=== PATIENT | male | born 1940 | race Caucasian/White ===

== ENCOUNTER 2017-06-02 18:35 | Inpatient (IN) | payer MEDICARE, BC ==
[~2017-06-02] VITALS: Ht 165.1 cm; Wt 74.8 kg
[~2017-06-02 18:35] MED LIST: ACET200V4 HHN; ASPI81TA31 PO; ATOR10TA PO; DILT90TA10 PO; EPOE200012 SQ; FAMO-132 PO; HYDR-4076 PO; HYDR-552 PO; IPRA0.2S6 HHN; LEVO50TA8 PO; MULT-1168 PO; PYRI60TA2 PO; ROSU5TAB PO; UBID1CAP54 PO
[2017-06-02] MEDS ORDERED: BISA10SU12 RC (18:57)
[2017-06-02] MEDS ORDERED: DONE5TAB34 PO (18:57)
[2017-06-02] MEDS ORDERED: MEMA5TAB PO (18:57)
[2017-06-02] MEDS ORDERED: FURO40TA5 PO (18:57)
[2017-06-02] MEDS ORDERED: CHOL200026 PO (18:57)
[2017-06-02] MEDS ORDERED: LACT-214 PO (18:57)
[2017-06-02] MEDS ORDERED: ACET-73 PO (18:57)
[2017-06-02] MEDS ORDERED: ASCO500T9 PO (18:57)
[2017-06-02] MEDS ORDERED: MENT71OI TP (18:57)
[2017-06-02] MEDS ORDERED: HEPA500034 IJ (18:57)
[2017-06-02] MEDS ORDERED: DILT120T2 PO (18:57)
[2017-06-02] MEDS ORDERED: MIRT15TA PO (18:57)
[2017-06-02] MEDS ORDERED: AMIN30LI2 PO (18:57)
[2017-06-02 19:11] LABS: CARBON DIOXIDE 21 mmol/L (21-32); CHLORIDE 106 mmol/L (98-107); CREATININE 2.3 mg/dL (0.6-1.3); GLUCOSE 98 mg/dL (74-106); POTASSIUM 4.3 mmol/L (3.5-5.1); UREA NITROGEN, BLOOD 67 mg/dL (7-18)
[2017-06-02 19:12] LABS: BASOPHILS # (AUTO) 0.1 K/uL (0.0-8.0); BASOPHILS % (AUTO) 0.5 % (0.0-2.0); EOSINOPHILS # (AUTO) 0.7 K/uL (0.0-0.7); EOSINOPHILS % (AUTO) 5.3 % (0.0-7.0); HEMATOCRIT 42.2 % (40-50); HEMOGLOBIN 13.6 G/DL (14.0-18.0); LYMPHOCYTES # (AUTO) 1.5 K/UL (0.8-4.8); LYMPHOCYTES % (AUTO) 11.5 % (20.5-51.5); MEAN CORPUSCULAR HGB CONC 32 g/dL (32.0-37.0); MEAN CORPUSCULAR VOLUME 90.3 FL (82.0-92.0); MONOCYTES # (AUTO) 1.3 K/UL (0.1-1.30); MONOCYTES % (AUTO) 10.1 % (0.0-11.0); NEUTROPHILS # (AUTO) 9.3 K/UL (1.8-8.9); NEUTROPHILS % (AUTO) 72.6 % (38.5-71.5); PLATELET COUNT (AUTO) 196 K/UL (150-450); RED BLOOD CELL COUNT(AUTO) 4.67 MIL/UL (4.7-6.1); WHITE BLOOD COUNT (AUTO) 12.9 K/UL (4.0-11.2)
[2017-06-02 19:18] LABS: ETHANOL < 3 MG/DL (0-0)
--- NOTE | 2017-06-02 19:19 | NUR ---
Call placed to [facility] for PET evaluation, ETA 90 min.
[2017-06-02 19:25] LABS: ALANINE AMINOTRANSFERASE 26 U/L (16-63); ALKALINE PHOSPHATASE 54 U/L (50-136); ASPARTATE AMINOTRANSFERASE 17 U/L (15-37); BILIRUBIN,DIRECT 0.2 mg/dL (0.0-0.2); BILIRUBIN,TOTAL 0.4 mg/dL (0.2-1.0); TOTAL PROTEIN, SERUM 6.6 g/dL (6.4-8.2)
[2017-06-02 19:28] LABS: ACETAMINOPHEN < 2.0 ug/mL (10-30)
[2017-06-02 19:45] LABS: THYROID STIMULATING HORMONE 2.637 mIU/mL (0.358-3.740)
--- NOTE | 2017-06-02 19:52 | NUR ---
Daughter, Cheli, called to provide contact information. She states she will visit the patient tomorrow morning. Cheli, daughter, . Angela, who has a hip fracture and cannot visit, .
--- NOTE | 2017-06-02 22:18 | NUR ---
Pt. admitted to GPS, under care of Dr. Elise Belongs List completed
[2017-06-02] MEDS ORDERED: ACETAMINOPHEN ES 500 MG TABLET PO PRN (23:15)
[2017-06-02] MEDS ORDERED: BISACODYL 10 MG SUPP.RECT RC PRN (23:15)
[2017-06-02] MEDS ORDERED: HYDROCODONE/APAP 5-325MG TABLET PO PRN (23:15)
[2017-06-02] MEDS ORDERED: LORAZEPAM 1 MG TABLET PO PRN (23:45)
[2017-06-02] MEDS ORDERED: MAG HYDROX/AL HYDROX/SIMETH 30 ML LIQUID UDC PO PRN (23:45)
[2017-06-02] MEDS ORDERED: ACETAMINOPHEN 325 MG TABLET PO PRN (23:45)
[2017-06-02] MEDS ORDERED: TEMAZEPAM 7.5 MG CAPSULE PO PRN (23:45)
[2017-06-02 23:51] VITALS: BP 120/86
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
[2017-06-03] MEDS: LEVOTHYROXINE SODIUM 50 MCG TABLET PO SCH ×2 (07:00→07:31)
--- NOTE | 2017-06-03 07:00 | NUR ---
RECEIVED REPORT FROM AIR SUPPORT OPERATIONS OPERATOR NURSE, PT ASLEEP RESP EVEN/UNLABORED NO DISTRESS NOTED, WILL CONTINUE TO MONITOR.
[2017-06-03 07:30] VITALS: BP 142/97
[2017-06-03] MEDS: PROTEIN SUPPLEMENT (PROSTAT) 30 ML LIQUID PO SCH (08:00)
[2017-06-03] MEDS ORDERED: DONEPEZIL 5 MG TABLET PO SCH (09:00)
[2017-06-03] MEDS ORDERED: Medication Not On Formulary EA (Amino Acids/Protein Hydrolys (Pro-Stat Liquid) 30 ML) PO SCH (09:00)
[2017-06-03] MEDS: MULTIVIT, IRON, MIN NO. 8, FA TABLET PO SCH (09:00)
[2017-06-03] MEDS: HEPARIN SODIUM,PORCINE 5,000 UNITS/ML VIAL SQ SCH ×2 (09:00→21:00)
[2017-06-03] MEDS ORDERED: MEMANTINE HCL 5 MG TABLET PO SCH (09:00)
[2017-06-03] MEDS: FAMOTIDINE 20 MG TABLET PO SCH (09:00)
[2017-06-03] MEDS: ASCORBIC ACID 500 MG TABLET PO SCH (09:00)
[2017-06-03] MEDS ORDERED: HEPARIN SODIUM,PORCINE 10,000 UNITS/10 ML VIAL INJ SCH (09:00)
[2017-06-03] MEDS ORDERED: DILTIAZEM HCL 120 MG PO SCH (09:00)
[2017-06-03] MEDS: FUROSEMIDE 40 MG TABLET PO SCH (09:00)
[2017-06-03] MEDS ORDERED: LACTOSE FREE FOOD PO SCH (09:00)
[2017-06-03] MEDS ORDERED: Medication Not On Formulary EA (Cholecalciferol (Vitamin D3) (Vitamin D3 TAB) 2,000 UNIT PO SCH (09:00)
[2017-06-03] MEDS: CHOLECALCIFEROL 1,000 UNIT TABLET PO SCH ×2 (09:00→17:47)
[2017-06-03] MEDS ORDERED: Medication Not On Formulary EA (Mu-Vits-Min Th/Lycopene/Lutein (Centrum Silver Tablet) 1 PO SCH (09:00)
[2017-06-03] MEDS: ASPIRIN 81 MG TAB.CHEW PO SCH (09:00)
[2017-06-03] MEDS: DILTIAZEM HCL CD 120 MG CAP.SR.24H PO SCH (09:00)
[2017-06-03] MEDS ORDERED: Z GUARD REMEDY PASTE 57 GM TUBE TP SCH (09:00)
--- NOTE | 2017-06-03 09:51 | NUR ---
PT REFUSED ALL AM MEDS, SAID 'NO THANK YOU', ENC PT TO TAKE MEDS BUT PT STILL REFUSED.
[2017-06-03] MEDS: BOOST PLUS 237 ML LIQUID (VERY VANILLA) PO SCH ×2 (12:00→17:50)
[2017-06-03 15:29] VITALS: BP 131/80
--- NOTE | 2017-06-03 17:58 | NUR ---
PT TOOK PM MEDS, EATING DINNER DAUGHTER AT BEDSIDE, PT IS CALM AND QUIET, WILL GIVE REPORT TO TRAINING PROGRAM ASSISTANT NURSE.
[2017-06-03 20:07] VITALS: BP 121/83
[2017-06-03] MEDS: MIRTAZAPINE 15 MG TABLET PO SCH (21:21)
[2017-06-04] MEDS: LEVOTHYROXINE SODIUM 50 MCG TABLET PO SCH (06:52)
[2017-06-04 07:30] VITALS: BP 128/85
[2017-06-04] MEDS: PROTEIN SUPPLEMENT (PROSTAT) 30 ML LIQUID PO SCH (08:00)
[2017-06-04] MEDS: BOOST PLUS 237 ML LIQUID (VERY VANILLA) PO SCH ×3 (08:00→16:51)
[2017-06-04] MEDS: ASPIRIN 81 MG TAB.CHEW PO SCH (08:45)
[2017-06-04] MEDS: MULTIVIT, IRON, MIN NO. 8, FA TABLET PO SCH (08:45)
[2017-06-04] MEDS: ASCORBIC ACID 500 MG TABLET PO SCH (08:45)
[2017-06-04] MEDS: FUROSEMIDE 40 MG TABLET PO SCH (08:45)
[2017-06-04] MEDS: FAMOTIDINE 20 MG TABLET PO SCH (08:45)
[2017-06-04] MEDS: CHOLECALCIFEROL 1,000 UNIT TABLET PO SCH ×2 (08:45→16:50)
[2017-06-04] MEDS: DILTIAZEM HCL CD 120 MG CAP.SR.24H PO SCH (08:46)
[2017-06-04] MEDS: HEPARIN SODIUM,PORCINE 5,000 UNITS/ML VIAL SQ SCH ×2 (08:48→20:04)
[2017-06-04] MEDS: Z GUARD REMEDY PASTE 57 GM TUBE TP SCH (09:27)
--- NOTE | 2017-06-04 15:00 | NUR ---
family at bedside, supportive of patient care. patient glad of visit.
[2017-06-04 15:22] VITALS: BP 118/79
[2017-06-04 17:02] LABS: BASOPHILS # (AUTO) 0.1 K/uL (0.0-8.0); BASOPHILS % (AUTO) 0.5 % (0.0-2.0); EOSINOPHILS # (AUTO) 0.6 K/uL (0.0-0.7); EOSINOPHILS % (AUTO) 5.6 % (0.0-7.0); HEMATOCRIT 39.2 % (40-50); HEMOGLOBIN 12.9 G/DL (14.0-18.0); LYMPHOCYTES % (AUTO) 10.3 % (20.5-51.5); MEAN CORPUSCULAR HEMOGLOBIN 29.6 UUG (27.0-31.0); MEAN CORPUSCULAR HGB CONC 33 g/dL (32.0-37.0); MEAN CORPUSCULAR VOLUME 90.2 FL (82.0-92.0); MONOCYTES # (AUTO) 0.9 K/UL (0.1-1.30); MONOCYTES % (AUTO) 9.3 % (0.0-11.0); NEUTROPHILS # (AUTO) 7.5 K/UL (1.8-8.9); NEUTROPHILS % (AUTO) 74.3 % (38.5-71.5); PLATELET COUNT (AUTO) 187 K/UL (150-450); RED BLOOD CELL COUNT(AUTO) 4.34 MIL/UL (4.7-6.1); WHITE BLOOD COUNT (AUTO) 10.1 K/UL (4.0-11.2)
[2017-06-04 17:12] LABS: CARBON DIOXIDE 20 mmol/L (21-32); CHLORIDE 106 mmol/L (98-107); CREATININE 2.1 mg/dL (0.6-1.3); GLUCOSE 85 mg/dL (74-106); POTASSIUM 5.8 mmol/L (3.5-5.1); UREA NITROGEN, BLOOD 63 mg/dL (7-18)
--- NOTE | 2017-06-04 17:54 | NUR ---
more cooperative with meds and care after lunch time.
[2017-06-04 18:46] LABS: *BILIRUBIN,URIN NEGATIVE (NEGATIVE); *BLOOD, URINE Trace-intact (NEGATIVE); *CLARITY,URINE CLEAR (CLEAR); *COLOR,URINE YELLOW (YELLOW); *KETONES,URINE NEGATIVE (NEGATIVE); *PROTEIN,URINE NEGATIVE (NEGATIVE); *UROBILINOGEN,URINE 0.2 E.U./dl (NORMAL); LEUKOCYTE ESTERASE ,URINE NEGATIVE (NEGATIVE); NITRITE, URINE NEGATIVE (NEGATIVE); UGLUCOSE NEGATIVE (NEGATIVE)
[2017-06-04 18:53] LABS: BACTERIA,URINE FEW /HPF (NONE SEEN); RBC,URINE 0-3 /HPF (0-3); SQUAMOUS EPITHELIAL CELL,UR FEW /HPF (NONE SEEN); WBC,URINE 0-3 /HPF (0-3)
[2017-06-04] MEDS: risperiDONE-M 0.5 MG TAB.RAPDIS PO SCH (20:01)
[2017-06-04] MEDS: MIRTAZAPINE 15 MG TABLET PO SCH (20:01)
[2017-06-04 20:58] VITALS: BP 116/81
--- NOTE | 2017-06-04 21:27 | NUR ---
PATIENT RECEIVED IN BED AWAKE. PATIENT COMPLAINT WITH MEDICATION WITH PROMPTING NOTED. NO AGGRESSIVE OR COMBATIVE BEHAVIOR NOTED WILL CONTINUE TO MONITOR AND REDIRECT, PATIENT IS UNPREDICTABLE. PATIENT IS EASILY ANXIOUS, HOWEVER IS REDIRECTABLE. BED IN LOWEST POSITION, BED LOCKED, AND BED ALARM ON WHILE IN BED.
[2017-06-05] MEDS: LEVOTHYROXINE SODIUM 50 MCG TABLET PO SCH (06:32)
[2017-06-05 07:00] LABS: BASOPHILS # (AUTO) 0.1 K/uL (0.0-8.0); BASOPHILS % (AUTO) 0.7 % (0.0-2.0); EOSINOPHILS # (AUTO) 0.6 K/uL (0.0-0.7); EOSINOPHILS % (AUTO) 6.1 % (0.0-7.0); HEMATOCRIT 39.4 % (40-50); LYMPHOCYTES # (AUTO) 1.3 K/UL (0.8-4.8); LYMPHOCYTES % (AUTO) 13.5 % (20.5-51.5); MEAN CORPUSCULAR HEMOGLOBIN 29.9 UUG (27.0-31.0); MEAN CORPUSCULAR HGB CONC 33 g/dL (32.0-37.0); MEAN CORPUSCULAR VOLUME 90.4 FL (82.0-92.0); NEUTROPHILS # (AUTO) 6.8 K/UL (1.8-8.9); NEUTROPHILS % (AUTO) 69.7 % (38.5-71.5); PLATELET COUNT (AUTO) 168 K/UL (150-450); RED BLOOD CELL COUNT(AUTO) 4.35 MIL/UL (4.7-6.1); WHITE BLOOD COUNT (AUTO) 9.8 K/UL (4.0-11.2)
[2017-06-05 07:25] LABS: ALANINE AMINOTRANSFERASE 21 U/L (16-63); ALKALINE PHOSPHATASE 53 U/L (50-136); ASPARTATE AMINOTRANSFERASE 15 U/L (15-37); BILIRUBIN,TOTAL 0.4 mg/dL (0.2-1.0); CARBON DIOXIDE 20 mmol/L (21-32); CHLORIDE 105 mmol/L (98-107); CREATININE 2.1 mg/dL (0.6-1.3); GLUCOSE 89 mg/dL (74-106); MAGNESIUM 2.1 mg/dL (1.8-2.4); PHOSPHOROUS 5.2 mg/dL (2.5-4.9); POTASSIUM 4.7 mmol/L (3.5-5.1); UREA NITROGEN, BLOOD 57 mg/dL (7-18)
[2017-06-05 07:30] VITALS: BP 113/73
[2017-06-05] MEDS: BOOST PLUS 237 ML LIQUID (VERY VANILLA) PO SCH ×3 (08:00→17:00)
[2017-06-05] MEDS: PROTEIN SUPPLEMENT (PROSTAT) 30 ML LIQUID PO SCH (08:00)
[2017-06-05] MEDS: CHOLECALCIFEROL 1,000 UNIT TABLET PO SCH ×2 (09:03→17:52)
[2017-06-05] MEDS: FAMOTIDINE 20 MG TABLET PO SCH (09:03)
[2017-06-05] MEDS: MULTIVIT, IRON, MIN NO. 8, FA TABLET PO SCH (09:03)
[2017-06-05] MEDS: ASCORBIC ACID 500 MG TABLET PO SCH (09:03)
[2017-06-05] MEDS: ASPIRIN 81 MG TAB.CHEW PO SCH (09:04)
[2017-06-05] MEDS: DILTIAZEM HCL CD 120 MG CAP.SR.24H PO SCH (09:04)
[2017-06-05] MEDS: FUROSEMIDE 40 MG TABLET PO SCH (09:04)
[2017-06-05] MEDS: HEPARIN SODIUM,PORCINE 5,000 UNITS/ML VIAL SQ SCH ×2 (09:08→20:52)
[2017-06-05] MEDS: Z GUARD REMEDY PASTE 57 GM TUBE TP SCH (09:09)
--- NOTE | 2017-06-05 14:29 | NUR ---
Initial discharge instructions: Pt resides at [facility] [[id number],[place],[address][.Pt did not report if he wishes to return back to the facility or not.Per ,Angela [phone] she would like the pt to return back once stable.Spoke with Nuvia at the facility who stated they will not accept the pt back.SW will speak with pt,family,and MD regarding appropriate discharge plans.SW will form a safe and proper discharge plan.
[2017-06-05 17:10] VITALS: BP 97/66
--- NOTE | 2017-06-05 18:52 | NUR ---
boost not sent after two phone calls
[2017-06-05 20:00] VITALS: BP 116/73
[2017-06-05] MEDS: risperiDONE-M 0.5 MG TAB.RAPDIS PO SCH (20:51)
[2017-06-05] MEDS: MIRTAZAPINE 15 MG TABLET PO SCH (20:51)
--- NOTE | 2017-06-06 05:45 | NUR ---
GPS/NSG PATIENT FIRST OBSERVED LYING IN FIRST AIR MATTRESS. PATIENT APPEARED TO HAVE A FAIR MOOD WITH A BRIGHT AFFECT, FORGETFUL AND CONFUSED. COMPLIANT WITH MEDICATION, PENDING WOUND CONSULT PATIENT RECEIVES TOPICAL TX COCCYX AREA. WILL CONTINUE TO MONITOR SKIN INTEGRITY WELL PROVIDE MEASURES TO PREVENT FURTHER SKIN BREAKDOWN AND PROMOTE SKIN INTEGRITY. CONTINUE TO MONNITOR FOR SAFETY. PATIENT LAST OBSERVED LYING IN BED ASLEEP.
[2017-06-06] MEDS: LEVOTHYROXINE SODIUM 50 MCG TABLET PO SCH (06:41)
[2017-06-06 07:30] VITALS: BP 126/89
[2017-06-06] MEDS: CHOLECALCIFEROL 1,000 UNIT TABLET PO SCH ×2 (09:24→17:22)
[2017-06-06] MEDS: FUROSEMIDE 40 MG TABLET PO SCH (09:25)
[2017-06-06] MEDS: DILTIAZEM HCL CD 120 MG CAP.SR.24H PO SCH (09:25)
[2017-06-06] MEDS: ASCORBIC ACID 500 MG TABLET PO SCH (09:25)
[2017-06-06] MEDS: ASPIRIN 81 MG TAB.CHEW PO SCH (09:25)
[2017-06-06] MEDS: MULTIVIT, IRON, MIN NO. 8, FA TABLET PO SCH (09:25)
[2017-06-06] MEDS: FAMOTIDINE 20 MG TABLET PO SCH (09:25)
[2017-06-06] MEDS: HEPARIN SODIUM,PORCINE 5,000 UNITS/ML VIAL SQ SCH ×2 (09:27→21:30)
[2017-06-06] MEDS: Z GUARD REMEDY PASTE 57 GM TUBE TP SCH (09:33)
[2017-06-06] MEDS: BOOST PLUS 237 ML LIQUID (VERY VANILLA) PO SCH ×3 (09:40→17:22)
[2017-06-06] MEDS: PROTEIN SUPPLEMENT (PROSTAT) 30 ML LIQUID PO SCH (09:41)
[2017-06-06 15:59] VITALS: BP 95/64
[2017-06-06 20:00] VITALS: BP 117/79
[2017-06-06] MEDS: MIRTAZAPINE 15 MG TABLET PO SCH (20:42)
[2017-06-06] MEDS: risperiDONE-M 0.5 MG TAB.RAPDIS PO SCH (20:43)
[2017-06-07] MEDS: LEVOTHYROXINE SODIUM 50 MCG TABLET PO SCH (06:52)
[2017-06-07 08:00] VITALS: BP 129/81
[2017-06-07] MEDS: MULTIVIT, IRON, MIN NO. 8, FA TABLET PO SCH (08:44)
[2017-06-07] MEDS: ASPIRIN 81 MG TAB.CHEW PO SCH (08:44)
[2017-06-07] MEDS: DILTIAZEM HCL CD 120 MG CAP.SR.24H PO SCH (08:44)
[2017-06-07] MEDS: FUROSEMIDE 40 MG TABLET PO SCH (08:44)
[2017-06-07] MEDS: ASCORBIC ACID 500 MG TABLET PO SCH (08:44)
[2017-06-07] MEDS: CHOLECALCIFEROL 1,000 UNIT TABLET PO SCH ×2 (08:44→17:30)
[2017-06-07] MEDS: FAMOTIDINE 20 MG TABLET PO SCH (08:45)
[2017-06-07] MEDS: HEPARIN SODIUM,PORCINE 5,000 UNITS/ML VIAL SQ SCH ×2 (08:47→21:16)
[2017-06-07] MEDS: PROTEIN SUPPLEMENT (PROSTAT) 30 ML LIQUID PO SCH (08:54)
[2017-06-07] MEDS: BOOST PLUS 237 ML LIQUID (VERY VANILLA) PO SCH ×3 (08:54→17:37)
[2017-06-07] MEDS: Z GUARD REMEDY PASTE 57 GM TUBE TP SCH (08:55)
[2017-06-07] MEDS: MUPIROCIN 2% OINT 22 GM TUBE TP SCH (09:58)
[2017-06-07] MEDS: DOCUSATE SODIUM 100 MG CAPSULE PO SCH ×2 (14:00→21:13)
[2017-06-07 15:00] VITALS: BP 113/78
[2017-06-07] MEDS: MIRTAZAPINE 15 MG TABLET PO SCH (21:13)
[2017-06-07] MEDS: risperiDONE-M 0.5 MG TAB.RAPDIS PO SCH (21:14)
[2017-06-07 21:21] VITALS: BP 112/73
[2017-06-08] MEDS: LEVOTHYROXINE SODIUM 50 MCG TABLET PO SCH ×2 (06:27→06:36)
[2017-06-08 07:30] VITALS: BP 130/94
[2017-06-08 08:12] LABS: BASOPHILS # (AUTO) 0.1 K/uL (0.0-8.0); BASOPHILS % (AUTO) 0.5 % (0.0-2.0); EOSINOPHILS # (AUTO) 0.7 K/uL (0.0-0.7); EOSINOPHILS % (AUTO) 7.1 % (0.0-7.0); HEMATOCRIT 40.9 % (40-50); HEMOGLOBIN 13.3 G/DL (14.0-18.0); LYMPHOCYTES # (AUTO) 1.4 K/UL (0.8-4.8); LYMPHOCYTES % (AUTO) 13.5 % (20.5-51.5); MEAN CORPUSCULAR HEMOGLOBIN 29.5 UUG (27.0-31.0); MEAN CORPUSCULAR HGB CONC 33 g/dL (32.0-37.0); MEAN CORPUSCULAR VOLUME 90.4 FL (82.0-92.0); MONOCYTES % (AUTO) 10.2 % (0.0-11.0); NEUTROPHILS % (AUTO) 68.7 % (38.5-71.5); PLATELET COUNT (AUTO) 156 K/UL (150-450); RED BLOOD CELL COUNT(AUTO) 4.52 MIL/UL (4.7-6.1); WHITE BLOOD COUNT (AUTO) 10.2 K/UL (4.0-11.2)
[2017-06-08 08:32] LABS: ALANINE AMINOTRANSFERASE 20 U/L (16-63); ALKALINE PHOSPHATASE 58 U/L (50-136); ASPARTATE AMINOTRANSFERASE 15 U/L (15-37); BILIRUBIN,TOTAL 0.5 mg/dL (0.2-1.0); CARBON DIOXIDE 23 mmol/L (21-32); CHLORIDE 104 mmol/L (98-107); CREATININE 2.7 mg/dL (0.6-1.3); GLUCOSE 84 mg/dL (74-106); MAGNESIUM 2.2 mg/dL (1.8-2.4); PHOSPHOROUS 4.2 mg/dL (2.5-4.9); TOTAL PROTEIN, SERUM 6.3 g/dL (6.4-8.2)
[2017-06-08 08:38] LABS: UREA NITROGEN, BLOOD 87 mg/dL (7-18)
--- NOTE | 2017-06-08 08:38 | NUR ---
GPS/RN- received call from Lab/[facility] lab BUN 87. labs read back.
--- NOTE | 2017-06-08 08:50 | NUR ---
GPS./MIS- Mirlande Hawk N.P., aware of critical lab BUN 87. no new orders at this time.
[2017-06-08] MEDS: DOCUSATE SODIUM 100 MG CAPSULE PO SCH ×2 (09:00→21:26)
[2017-06-08] MEDS: MULTIVIT, IRON, MIN NO. 8, FA TABLET PO SCH (10:13)
[2017-06-08] MEDS: FUROSEMIDE 40 MG TABLET PO SCH (10:13)
[2017-06-08] MEDS: FAMOTIDINE 20 MG TABLET PO SCH (10:13)
[2017-06-08] MEDS: ASCORBIC ACID 500 MG TABLET PO SCH (10:13)
[2017-06-08] MEDS: ASPIRIN 81 MG TAB.CHEW PO SCH (10:13)
[2017-06-08] MEDS: DILTIAZEM HCL CD 120 MG CAP.SR.24H PO SCH (10:14)
[2017-06-08] MEDS: CHOLECALCIFEROL 1,000 UNIT TABLET PO SCH ×2 (10:14→17:59)
[2017-06-08] MEDS: BOOST PLUS 237 ML LIQUID (VERY VANILLA) PO SCH ×3 (10:15→18:00)
[2017-06-08] MEDS: PROTEIN SUPPLEMENT (PROSTAT) 30 ML LIQUID PO SCH (10:15)
[2017-06-08] MEDS: HEPARIN SODIUM,PORCINE 5,000 UNITS/ML VIAL SQ SCH ×2 (10:17→21:35)
[2017-06-08] MEDS ORDERED: IV NS 1000 ML 1,000 ML IV ONE (10:30)
[2017-06-08] MEDS ORDERED: Z GUARD REMEDY PASTE 57 GM TUBE TOP PRN (10:30)
--- NOTE | 2017-06-08 10:32 | NUR ---
WOUND CARE CONSULT PATIENT SEEN AND SKIN INTEGRITY ASSESSMENT DONE. PLEASE SEE STATISTICIAN ASSESSMENT IN PCS FOR TODAY ALONG WITH ALL RECOMMENDATIONS. PATIENT WITH CURRENT ROCIO AT 10, 1ST STEP LOW AIRLOSS MATTRESS IN USE FOR SKIN MANAGEMENT AND TREATMENT, RECOMMEND TURNING SCHED Q 2 HOURS PATIENT CONDITION PERMITS, BILATERAL HEEL FLOATING, CONTINUED USE OF Z GUARD. ALL TREATMENT PLANS DISCUSSED WITH MD AND MD IN AGREEMENT. ALL DISCUSSED WITH NURSING AT THE BEDSIDE. Addendum: 06/08/17 at 1036 by MALINI SANCHEZ WNDNU Amended: Links added.
[2017-06-08] MEDS: CLOTRIMAZOLE 1% CREAM 30 GM TUBE TOP SCH ×3 (11:53→17:59)
[2017-06-08] MEDS: MUPIROCIN 2% OINT 22 GM TUBE TP SCH (12:15)
[2017-06-08 16:00] VITALS: BP 106/68
[2017-06-08] MEDS: Z GUARD REMEDY PASTE 57 GM TUBE TP SCH (17:59)
[2017-06-08 20:28] VITALS: BP 128/99
[2017-06-08] MEDS: MIRTAZAPINE 15 MG TABLET PO SCH (21:27)
[2017-06-08] MEDS: risperiDONE-M 0.5 MG TAB.RAPDIS PO SCH (21:28)
[2017-06-09] MEDS: LEVOTHYROXINE SODIUM 50 MCG TABLET PO SCH (06:12)
[2017-06-09 07:18] LABS: CARBON DIOXIDE 22 mmol/L (21-32); CHLORIDE 106 mmol/L (98-107); CREATININE 2.6 mg/dL (0.6-1.3); GLUCOSE 82 mg/dL (74-106); POTASSIUM 4.5 mmol/L (3.5-5.1)
[2017-06-09 07:22] LABS: UREA NITROGEN, BLOOD 88 mg/dL (7-18)
[2017-06-09 07:30] VITALS: BP 115/68
[2017-06-09] MEDS: PROTEIN SUPPLEMENT (PROSTAT) 30 ML LIQUID PO SCH (08:00)
[2017-06-09] MEDS: BOOST PLUS 237 ML LIQUID (VERY VANILLA) PO SCH ×3 (08:00→18:04)
[2017-06-09] MEDS ORDERED: FUROSEMIDE 40 MG TABLET PO SCH (09:00)
[2017-06-09] MEDS ORDERED: FUROSEMIDE 20 MG TABLET PO SCH (09:00)
[2017-06-09] MEDS: CHOLECALCIFEROL 1,000 UNIT TABLET PO SCH ×2 (09:37→18:03)
[2017-06-09] MEDS: MULTIVIT, IRON, MIN NO. 8, FA TABLET PO SCH (09:37)
[2017-06-09] MEDS: DOCUSATE SODIUM 100 MG CAPSULE PO SCH ×2 (09:37→20:34)
[2017-06-09] MEDS: ASCORBIC ACID 500 MG TABLET PO SCH (09:37)
[2017-06-09] MEDS: DILTIAZEM HCL CD 120 MG CAP.SR.24H PO SCH (09:37)
[2017-06-09] MEDS: FAMOTIDINE 20 MG TABLET PO SCH (09:37)
[2017-06-09] MEDS: ASPIRIN 81 MG TAB.CHEW PO SCH (09:37)
[2017-06-09] MEDS: HEPARIN SODIUM,PORCINE 5,000 UNITS/ML VIAL SQ SCH ×2 (09:42→20:33)
[2017-06-09] MEDS: Z GUARD REMEDY PASTE 57 GM TUBE TP SCH ×2 (09:43→18:04)
[2017-06-09] MEDS: CLOTRIMAZOLE 1% CREAM 30 GM TUBE TOP SCH ×2 (09:45→18:07)
[2017-06-09] MEDS: MUPIROCIN 2% OINT 22 GM TUBE TP SCH (09:45)
[2017-06-09] MEDS ORDERED: BISACODYL 10 MG SUPP.RECT RC ONE (14:00)
[2017-06-09 20:31] VITALS: BP 118/63
[2017-06-09] MEDS: risperiDONE-M 0.5 MG TAB.RAPDIS PO SCH (20:34)
[2017-06-09] MEDS: MIRTAZAPINE 15 MG TABLET PO SCH (20:36)
--- NOTE | 2017-06-10 05:42 | NUR ---
Patient has a patent saline lock in right anterior distal arm. Hep lock was flushed with 9ml saline. Patient tolerated well.
[2017-06-10] MEDS: LEVOTHYROXINE SODIUM 50 MCG TABLET PO SCH (07:00)
--- NOTE | 2017-06-10 07:04 | NUR ---
Patient slept for approx 7.30hrs through the night. Patient was turned and reposition Q2hrs. had 2 BM during the night. Patient refused Synthroid at 7:00pm, he stated, "I do not take medication at this time". encouraged; however, he continue refusing. we will continue to monitor.
[2017-06-10 07:30] VITALS: BP 114/79
[2017-06-10 08:00] LABS: CARBON DIOXIDE 23 mmol/L (21-32); CHLORIDE 104 mmol/L (98-107); CREATININE 2.6 mg/dL (0.6-1.3); GLUCOSE 95 mg/dL (74-106); POTASSIUM 4.8 mmol/L (3.5-5.1)
[2017-06-10] MEDS: PROTEIN SUPPLEMENT (PROSTAT) 30 ML LIQUID PO SCH (08:00)
[2017-06-10 08:05] LABS: UREA NITROGEN, BLOOD 86 mg/dL (7-18)
[2017-06-10] MEDS: DOCUSATE SODIUM 100 MG CAPSULE PO SCH ×2 (09:00→09:43)
[2017-06-10] MEDS: ASPIRIN 81 MG TAB.CHEW PO SCH (09:42)
[2017-06-10] MEDS: MULTIVIT, IRON, MIN NO. 8, FA TABLET PO SCH (09:42)
[2017-06-10] MEDS: ASCORBIC ACID 500 MG TABLET PO SCH (09:42)
[2017-06-10] MEDS: CHOLECALCIFEROL 1,000 UNIT TABLET PO SCH ×2 (09:43→17:38)
[2017-06-10] MEDS: MUPIROCIN 2% OINT 22 GM TUBE TP SCH (09:43)
[2017-06-10] MEDS: DILTIAZEM HCL CD 120 MG CAP.SR.24H PO SCH (09:43)
[2017-06-10] MEDS: Z GUARD REMEDY PASTE 57 GM TUBE TP SCH ×2 (09:43→17:08)
[2017-06-10] MEDS: FAMOTIDINE 20 MG TABLET PO SCH (09:43)
[2017-06-10] MEDS: CLOTRIMAZOLE 1% CREAM 30 GM TUBE TOP SCH ×2 (09:44→17:38)
[2017-06-10] MEDS: BOOST PLUS 237 ML LIQUID (VERY VANILLA) PO SCH ×3 (09:44→17:08)
[2017-06-10] MEDS: HEPARIN SODIUM,PORCINE 5,000 UNITS/ML VIAL SQ SCH ×2 (09:45→20:51)
[2017-06-10] MEDS ORDERED: IV NS 1000 ML 1,000 ML IV ONE (10:30)
[2017-06-10 16:00] VITALS: BP 99/63
--- NOTE | 2017-06-10 18:38 | NUR ---
GPS/RN - patient verbalized bladder pressure when performing care. Mirlande Hawk, N.P., verbal orders to bladder scan, current scan shows 63ml at this time.
--- NOTE | 2017-06-10 18:45 | NUR ---
GPS/RN- Patient previously on Namenda, discussed with Dr Glez, regarding med held on admission. No new orders at this time for Namenda since patient has elevated BUN and Creatinine. continue to monitor
[2017-06-10 20:06] VITALS: BP 109/61
[2017-06-10] MEDS: MIRTAZAPINE 15 MG TABLET PO SCH (20:48)
[2017-06-10] MEDS: risperiDONE-M 0.5 MG TAB.RAPDIS PO SCH (20:49)
[2017-06-11] MEDS: LEVOTHYROXINE SODIUM 50 MCG TABLET PO SCH (06:08)
[2017-06-11 06:30] LABS: BASOPHILS % (AUTO) 0.5 % (0.0-2.0); EOSINOPHILS # (AUTO) 0.5 K/uL (0.0-0.7); EOSINOPHILS % (AUTO) 5.9 % (0.0-7.0); HEMATOCRIT 36.1 % (40-50); LYMPHOCYTES # (AUTO) 1.2 K/UL (0.8-4.8); LYMPHOCYTES % (AUTO) 13.7 % (20.5-51.5); MEAN CORPUSCULAR HEMOGLOBIN 29.9 UUG (27.0-31.0); MEAN CORPUSCULAR HGB CONC 33 g/dL (32.0-37.0); MEAN CORPUSCULAR VOLUME 89.5 FL (82.0-92.0); MONOCYTES # (AUTO) 0.9 K/UL (0.1-1.30); MONOCYTES % (AUTO) 9.7 % (0.0-11.0); NEUTROPHILS # (AUTO) 6.2 K/UL (1.8-8.9); NEUTROPHILS % (AUTO) 70.2 % (38.5-71.5); PLATELET COUNT (AUTO) 150 K/UL (150-450); RED BLOOD CELL COUNT(AUTO) 4.03 MIL/UL (4.7-6.1); WHITE BLOOD COUNT (AUTO) 8.8 K/UL (4.0-11.2)
[2017-06-11 07:30] VITALS: BP 121/83
[2017-06-11 07:43] LABS: ALANINE AMINOTRANSFERASE 19 U/L (16-63); ALKALINE PHOSPHATASE 51 U/L (50-136); ASPARTATE AMINOTRANSFERASE 12 U/L (15-37); BILIRUBIN,TOTAL 0.4 mg/dL (0.2-1.0); CARBON DIOXIDE 24 mmol/L (21-32); CHLORIDE 105 mmol/L (98-107); CREATININE 2.4 mg/dL (0.6-1.3); GLUCOSE 92 mg/dL (74-106); MAGNESIUM 2.2 mg/dL (1.8-2.4); PHOSPHOROUS 4.5 mg/dL (2.5-4.9); TOTAL PROTEIN, SERUM 5.9 g/dL (6.4-8.2)
[2017-06-11 07:45] LABS: UREA NITROGEN, BLOOD 88 mg/dL (7-18)
[2017-06-11] MEDS: FAMOTIDINE 20 MG TABLET PO SCH (08:44)
[2017-06-11] MEDS: DILTIAZEM HCL CD 120 MG CAP.SR.24H PO SCH (08:44)
[2017-06-11] MEDS: ASCORBIC ACID 500 MG TABLET PO SCH (08:44)
[2017-06-11] MEDS: ASPIRIN 81 MG TAB.CHEW PO SCH (08:44)
[2017-06-11] MEDS: MULTIVIT, IRON, MIN NO. 8, FA TABLET PO SCH (08:44)
[2017-06-11] MEDS: CHOLECALCIFEROL 1,000 UNIT TABLET PO SCH ×2 (08:44→17:29)
[2017-06-11] MEDS: Z GUARD REMEDY PASTE 57 GM TUBE TP SCH ×2 (08:45→17:29)
[2017-06-11] MEDS: CLOTRIMAZOLE 1% CREAM 30 GM TUBE TOP SCH ×2 (08:45→17:31)
[2017-06-11] MEDS: MUPIROCIN 2% OINT 22 GM TUBE TP SCH (08:45)
[2017-06-11] MEDS: HEPARIN SODIUM,PORCINE 5,000 UNITS/ML VIAL SQ SCH ×2 (08:47→20:55)
[2017-06-11] MEDS: BOOST PLUS 237 ML LIQUID (VERY VANILLA) PO SCH ×3 (08:59→17:29)
[2017-06-11] MEDS: PROTEIN SUPPLEMENT (PROSTAT) 30 ML LIQUID PO SCH (08:59)
[2017-06-11 15:20] VITALS: BP 100/70
[2017-06-11 20:00] VITALS: BP 111/70
[2017-06-11] MEDS: risperiDONE-M 0.5 MG TAB.RAPDIS PO SCH (20:55)
[2017-06-11] MEDS: MIRTAZAPINE 15 MG TABLET PO SCH (20:55)
--- NOTE | 2017-06-12 05:21 | NUR ---
Due to confusion, Patient removed his Saline lock that was located on his right right arm. Area was cleaned with NS. Patient stated, "I don't remember removing it." we will endorse to incoming shift.
[2017-06-12] MEDS: LEVOTHYROXINE SODIUM 50 MCG TABLET PO SCH (06:22)
[2017-06-12 07:03] LABS: BASOPHILS # (AUTO) 0.1 K/uL (0.0-8.0); BASOPHILS % (AUTO) 0.6 % (0.0-2.0); EOSINOPHILS # (AUTO) 0.6 K/uL (0.0-0.7); EOSINOPHILS % (AUTO) 7.4 % (0.0-7.0); HEMATOCRIT 38.6 % (40-50); HEMOGLOBIN 12.6 G/DL (14.0-18.0); LYMPHOCYTES # (AUTO) 1.1 K/UL (0.8-4.8); LYMPHOCYTES % (AUTO) 12.3 % (20.5-51.5); MEAN CORPUSCULAR HEMOGLOBIN 29.7 UUG (27.0-31.0); MEAN CORPUSCULAR HGB CONC 33 g/dL (32.0-37.0); MEAN CORPUSCULAR VOLUME 90.6 FL (82.0-92.0); MONOCYTES % (AUTO) 11.2 % (0.0-11.0); NEUTROPHILS # (AUTO) 5.8 K/UL (1.8-8.9); NEUTROPHILS % (AUTO) 68.5 % (38.5-71.5); PLATELET COUNT (AUTO) 166 K/UL (150-450); RED BLOOD CELL COUNT(AUTO) 4.26 MIL/UL (4.7-6.1); WHITE BLOOD COUNT (AUTO) 8.6 K/UL (4.0-11.2)
[2017-06-12 07:17] LABS: ALANINE AMINOTRANSFERASE 21 U/L (16-63); ALKALINE PHOSPHATASE 56 U/L (50-136); ASPARTATE AMINOTRANSFERASE 19 U/L (15-37); BILIRUBIN,TOTAL 0.4 mg/dL (0.2-1.0); CARBON DIOXIDE 24 mmol/L (21-32); CHLORIDE 104 mmol/L (98-107); CREATININE 2.6 mg/dL (0.6-1.3); GLUCOSE 95 mg/dL (74-106); TOTAL PROTEIN, SERUM 6.1 g/dL (6.4-8.2)
[2017-06-12 07:20] LABS: UREA NITROGEN, BLOOD 83 mg/dL (7-18)
[2017-06-12 07:30] VITALS: BP 126/72
[2017-06-12] MEDS: CHOLECALCIFEROL 1,000 UNIT TABLET PO SCH (08:46)
[2017-06-12] MEDS: ASCORBIC ACID 500 MG TABLET PO SCH (08:46)
[2017-06-12] MEDS: ASPIRIN 81 MG TAB.CHEW PO SCH (08:46)
[2017-06-12] MEDS: DILTIAZEM HCL CD 120 MG CAP.SR.24H PO SCH (08:46)
[2017-06-12] MEDS: CLOTRIMAZOLE 1% CREAM 30 GM TUBE TOP SCH (08:47)
[2017-06-12] MEDS: MUPIROCIN 2% OINT 22 GM TUBE TP SCH (08:48)
[2017-06-12] MEDS: Z GUARD REMEDY PASTE 57 GM TUBE TP SCH (08:48)
[2017-06-12] MEDS: BOOST PLUS 237 ML LIQUID (VERY VANILLA) PO SCH ×2 (08:50→12:59)
[2017-06-12] MEDS: PROTEIN SUPPLEMENT (PROSTAT) 30 ML LIQUID PO SCH (08:50)
[2017-06-12] MEDS: FAMOTIDINE 20 MG TABLET PO SCH (08:52)
[2017-06-12] MEDS: MULTIVIT, IRON, MIN NO. 8, FA TABLET PO SCH (08:52)
[2017-06-12] MEDS: HEPARIN SODIUM,PORCINE 5,000 UNITS/ML VIAL SQ SCH (08:53)
--- NOTE | 2017-06-12 11:46 | NUR ---
PT WAS TO BE DISCHARGED TODAY WITH A DIAGNOSIS OF ACUTE RENAL FAILURE TO TELEMETRY WITH ORDERS FROM DR. SEYMOUR. BUN 83 CR 2.6. PT ASYMPTOMATIC AT THIS TIME. DR. RAMIREZ CAME TO ASSESS THE PT, STATES HE IS VERY FAMILIAR WITH THE PT AND TO CANCEL THE DISCHARGE TO TELE AND TO CONTINUE TO KEEP PT IN UNIT AT THIS TIME. STATED HE WILL TALK TO DR. ADAMS. DR. SHARP AWARE WELL AND WANTS TO CONTINUE DISCHARGE PLANNING FOR PT. CATASTROPHE CLAIMS SUPERVISOR AWARE.
--- NOTE | 2017-06-12 14:49 | NUR ---
DC Note: The patient will be discharged today [facility] [[address] [place] [address]; [phone]] via ambulance at 4:00 pm. Please schedule an ambulance for the patient. Spoke with CJ at the facility who stated they would accept the patient today. Spoke with patient's , Angela [phone] who is aware and agreeable with discharge plans. Pt will follow-up with (Carton Making Machine Operator) and (Psychiatrist) at the facility.
[2017-06-12 15:40] VITALS: BP 116/72
--- NOTE | 2017-06-12 16:22 | NUR ---
With discharge order to SNF, facilitated with [facility]. Report given to Daria. Discharge per gurney/ambulance in fair condition, not in distress, afebrile.
== END 2017-06-12 13:25 | DRG 884 ==
LOC: ER 18:40 → GPS 22:06
PROVIDERS: ADMIT Psychiatry & Neurology Psychiatry; ATTEND Psychiatry & Neurology Psychiatry
DX: F06.8 Other specified mental disorders due to known physiological condition (principal); N17.0 Acute kidney failure with tubular necrosis; N18.4 Chronic kidney disease, stage 4 (severe); G92 Toxic encephalopathy; I13.0 Hypertensive heart and chronic kidney disease with heart failure and stage 1 through stage 4 chronic kidney disease, or unspecified chronic kidney disease; E87.1 Hypo-osmolality and hyponatremia; E44.0 Moderate protein-calorie malnutrition; G70.00 Myasthenia gravis without (acute) exacerbation; I50.9 Heart failure, unspecified; I10 Essential (primary) hypertension; K21.9 Gastro-esophageal reflux disease without esophagitis; Z96.649 Presence of unspecified artificial hip joint; Z85.028 Personal history of other malignant neoplasm of stomach; Z85.01 Personal history of malignant neoplasm of esophagus; Z79.01 Long term (current) use of anticoagulants; Z79.899 Other long term (current) drug therapy; Z87.01 Personal history of pneumonia (recurrent); D50.9 Iron deficiency anemia, unspecified; E03.9 Hypothyroidism, unspecified; Z88.8 Allergy status to other drugs, medicaments and biological substances; E87.5 Hyperkalemia; I48.2 Chronic atrial fibrillation; Z98.890 Other specified postprocedural states; D72.828 Other elevated white blood cell count; E11.22 Type 2 diabetes mellitus with diabetic chronic kidney disease; E83.39 Other disorders of phosphorus metabolism; M19.90 Unspecified osteoarthritis, unspecified site; K59.00 Constipation, unspecified; H26.9 Unspecified cataract
CPT/HCPCS: 36415; 83735; 84100; 84443; 85025; 87086; 93005; 97110; 97116; 97161; 97530; G0480; G0480-TC; J1644; J7030

== ENCOUNTER 2017-08-06 22:39 | Inpatient (IN) | payer MEDICARE, BC ==
[~2017-08-06] VITALS: Ht 190.5 cm; Wt 77.6 kg
[~2017-08-06 22:39] MED LIST changes: +ACET-73 PO; -ACET200V4 HHN; +AMIN30LI2 PO; +ASCO500T9 PO; -ATOR10TA PO; +BISA10SU12 RC; +CHOL200026 PO; +DILT120T2 PO; -DILT90TA10 PO; +DONE5TAB34 PO; -EPOE200012 SQ; +FURO40TA5 PO; +HEPA500034 IJ; -HYDR-4076 PO; -IPRA0.2S6 HHN; +LACT-214 PO; +MEMA5TAB PO; +MENT71OI TP; -PYRI60TA2 PO; -ROSU5TAB PO; -UBID1CAP54 PO
--- NOTE | 2017-08-06 23:13 | NUR ---
LABS/URINE/EKG/CXR/COMPLETED. PT POSITIONED FOR COMFORT.
[2017-08-06] MEDS ORDERED: MIRT7.5T10 PO (23:18)
[2017-08-06] MEDS ORDERED: NA P133E RC (23:18)
[2017-08-06] MEDS ORDERED: SENN-167 PO (23:18)
[2017-08-06] MEDS ORDERED: MELA3TAB PO (23:18)
[2017-08-06] MEDS ORDERED: ACET325T53 PO ×2 (23:18)
[2017-08-06] MEDS ORDERED: MAGN400O6 PO (23:18)
[2017-08-06] MEDS ORDERED: DOCU100C36 PO (23:18)
[2017-08-06 23:20] LABS: BASOPHILS # (AUTO) 0.1 K/uL (0.0-8.0); BASOPHILS % (AUTO) 0.6 % (0.0-2.0); EOSINOPHILS # (AUTO) 0.2 K/uL (0.0-0.7); EOSINOPHILS % (AUTO) 1.8 % (0.0-7.0); HEMATOCRIT 36.1 % (40-50); HEMOGLOBIN 11.4 G/DL (14.0-18.0); LYMPHOCYTES # (AUTO) 1.3 K/UL (0.8-4.8); LYMPHOCYTES % (AUTO) 10.1 % (20.5-51.5); MEAN CORPUSCULAR HEMOGLOBIN 27.7 UUG (27.0-31.0); MEAN CORPUSCULAR HGB CONC 32 g/dL (32.0-37.0); MEAN CORPUSCULAR VOLUME 87.6 FL (82.0-92.0); MONOCYTES # (AUTO) 1.1 K/UL (0.1-1.30); MONOCYTES % (AUTO) 8.4 % (0.0-11.0); NEUTROPHILS # (AUTO) 10.5 K/UL (1.8-8.9); NEUTROPHILS % (AUTO) 79.1 % (38.5-71.5); PLATELET COUNT (AUTO) 193 K/UL (150-450); RED BLOOD CELL COUNT(AUTO) 4.12 MIL/UL (4.7-6.1); WHITE BLOOD COUNT (AUTO) 13.2 K/UL (4.0-11.2)
[2017-08-06 23:28] LABS: *BILIRUBIN,URIN NEGATIVE (NEGATIVE); *BLOOD, URINE 2+ (NEGATIVE); *CLARITY,URINE CLOUDY (CLEAR); *COLOR,URINE YELLOW (YELLOW); *KETONES,URINE NEGATIVE (NEGATIVE); *UROBILINOGEN,URINE 0.2 E.U./dl (NORMAL); LEUKOCYTE ESTERASE ,URINE 3+ (NEGATIVE); NITRITE, URINE NEGATIVE (NEGATIVE); PH,URINE >=9.0 (5.0-8.0); UGLUCOSE NEGATIVE (NEGATIVE)
[2017-08-06 23:30] LABS: *PROTEIN,URINE 3+ (NEGATIVE)
[2017-08-06 23:31] LABS: CARBON DIOXIDE 22 mmol/L (21-32); CHLORIDE 111 mmol/L (98-107); CREATININE 2.1 mg/dL (0.6-1.3); GLUCOSE 118 mg/dL (74-106); POTASSIUM 4.3 mmol/L (3.5-5.1); UREA NITROGEN, BLOOD 46 mg/dL (7-18)
[2017-08-06 23:38] LABS: BACTERIA,URINE MANY /HPF (NONE SEEN); TRIPLE PHOSPHATE CRYSTAL,UR MANY /HPF (NONE SEEN); WBC,URINE 50-80 /HPF (0-3)
--- NOTE | 2017-08-06 23:41 | NUR ---
Dr. Ferrara and primary RN notified of critical lab value, troponin 0.151
[2017-08-06 23:43] LABS: ALANINE AMINOTRANSFERASE 15 U/L (16-63); ALKALINE PHOSPHATASE 54 U/L (50-136); ASPARTATE AMINOTRANSFERASE 10 U/L (15-37); BILIRUBIN,DIRECT 0.2 mg/dL (0.0-0.2); BILIRUBIN,TOTAL 0.8 mg/dL (0.2-1.0); TOTAL PROTEIN, SERUM 6.1 g/dL (6.4-8.2)
--- NOTE | 2017-08-07 00:01 | NUR ---
call center support consultant for Dr. Mckoy's group paged for Dr. Ferrara
--- NOTE | 2017-08-07 00:44 | NUR ---
MSE COMPLETED, SBAR REPORT TO [facility]-2ND FLOOR, MRSA-NARERS ORDERED-SENT, ADMIT ORDER WRITTEN, BELONGINGS LIST DONE, ADMIT DATA SHEET COMPLETED.
[2017-08-07 01:30] VITALS: BP 143/89
--- NOTE | 2017-08-07 01:30 | NUR ---
NSG: PT RECEIVED A/O X4 FR ER VIA GURNEY WITH DX OF UTI. NO ACUTE DISTRESS NOTED. LUNGS SOUND CLEAR TO AUSCULTATE. F/C DRAINING YELLOW URINE WITH SEDIMENTS AND FOUL SMELLING ODOR. F/C FR SNF BUT NEW F/C REINSERTED YESTERDAY AT THE SNF PER PT. . HAS BLE WEAKNESS AND RIGIDITY AND PEDAL EDEMA. HAS MULTIPLE SKIN ISSUES. BED ALARM ON. CONT TO MONITOR.
[2017-08-07 04:14] VITALS: BP 139/106
--- NOTE | 2017-08-07 06:00 | NUR ---
NSG: NO ACUTE DISTRESS NOTED. DENIES DISCOMFORT. REPOSITIONED. COMFORTABLE IN BED AT THIS TIME. HOWEVER, 1ST STEP MATTRESS ORDERED.
[2017-08-07 06:23] LABS: BASOPHILS # (AUTO) 0.1 K/uL (0.0-8.0); BASOPHILS % (AUTO) 0.6 % (0.0-2.0); EOSINOPHILS # (AUTO) 0.3 K/uL (0.0-0.7); EOSINOPHILS % (AUTO) 2.2 % (0.0-7.0); HEMATOCRIT 35.8 % (40-50); HEMOGLOBIN 11.3 G/DL (14.0-18.0); LYMPHOCYTES # (AUTO) 1.4 K/UL (0.8-4.8); MEAN CORPUSCULAR HGB CONC 32 g/dL (32.0-37.0); MEAN CORPUSCULAR VOLUME 88.4 FL (82.0-92.0); MONOCYTES % (AUTO) 7.2 % (0.0-11.0); NEUTROPHILS # (AUTO) 11.3 K/UL (1.8-8.9); PLATELET COUNT (AUTO) 179 K/UL (150-450); RED BLOOD CELL COUNT(AUTO) 4.05 MIL/UL (4.7-6.1); WHITE BLOOD COUNT (AUTO) 14.1 K/UL (4.0-11.2)
[2017-08-07 06:24] LABS: ALANINE AMINOTRANSFERASE 16 U/L (16-63); ALKALINE PHOSPHATASE 53 U/L (50-136); ASPARTATE AMINOTRANSFERASE 12 U/L (15-37); BILIRUBIN,TOTAL 0.7 mg/dL (0.2-1.0); CARBON DIOXIDE 19 mmol/L (21-32); CHLORIDE 113 mmol/L (98-107); CHOLESTEROL 136 mg/dL (<200); GLUCOSE 138 mg/dL (74-106); HDL CHOLESTEROL 40 mg/dL (40-60); MAGNESIUM 1.8 mg/dL (1.8-2.4); PHOSPHOROUS 3.8 mg/dL (2.5-4.9); TOTAL PROTEIN, SERUM 5.9 g/dL (6.4-8.2); TRIGLYCERIDES 48 MG/DL (30-150); UREA NITROGEN, BLOOD 45 mg/dL (7-18)
[2017-08-07 06:35] LABS: IRON, SERUM 17 ug/dL (50-175)
--- NOTE | 2017-08-07 08:00 | NUR ---
awake alert and oriented, denies of pain, denies of shortness of breath, head of bed elevated, readied for breakfast, states bumped his left elbow on the rails and obtained a skin tear- cleansed and covered with dsg and wrapped with kerlix, needs attended and safety measures maintained, call light within reach
--- NOTE | 2017-08-07 08:30 | NUR ---
refused to take morning meds at this time, states "don't bother me" slightly agitated- will try again later
--- NOTE | 2017-08-07 10:15 | NUR ---
at bedside, convinced him to take his meds and agreed, no distress noted
[2017-08-07 11:43] VITALS: BP 141/100
[2017-08-07 15:39] VITALS: BP 150/96
--- NOTE | 2017-08-07 18:00 | NUR ---
REFUSED ALL THERAPIES TODAY. STATES WILL TRY TOMORROW. FEELS BETTER. DENIES ANY PAIN OR DISCOMFORT. REPOSITIONED X2. LINEN CHANGED X2. STATES NOT URINE. NO DRAINAGE NOTED FROM RAJAN.
[2017-08-07 19:00] VITALS: BP 139/102
--- NOTE | 2017-08-07 19:30 | NUR ---
PT RECEIVED IN BED, AWAKE. A/OX2. ABLE TO MAKE NEEDS KNOWN. PLEASANT ON APPROACH. V/S STABLE. IN NO ACUTE DISTRESS. NO C/O PAIN AT THIS TIME. PT RAJAN DRAINING PROPERLY. IV INTACT AND PATENT. SAFETY MEASURES IMPLEMENTED. CALL LIGHT WITHIN REACH.
[2017-08-08 04:00] VITALS: BP 137/98
--- NOTE | 2017-08-08 06:30 | NUR ---
END OF SHIFT NOTES. PT SLEPT WELL THROUGHOUT SHIFT. IN STABLE CONDITION. IV ABX INFUSED. IV INTACT AND PATENT. RAJAN DRAINING PROPERLY. ALL NEEDS ATTENDED. SAFETY MAINTAINED. CALL LIGHT WITHIN REACH.
[2017-08-08 06:37] LABS: BASOPHILS # (AUTO) 0.1 K/uL (0.0-8.0); BASOPHILS % (AUTO) 0.6 % (0.0-2.0); EOSINOPHILS # (AUTO) 0.5 K/uL (0.0-0.7); EOSINOPHILS % (AUTO) 3.8 % (0.0-7.0); HEMOGLOBIN 12.5 G/DL (14.0-18.0); LYMPHOCYTES # (AUTO) 1.4 K/UL (0.8-4.8); LYMPHOCYTES % (AUTO) 10.6 % (20.5-51.5); MEAN CORPUSCULAR HEMOGLOBIN 27.5 UUG (27.0-31.0); MEAN CORPUSCULAR HGB CONC 31 g/dL (32.0-37.0); MEAN CORPUSCULAR VOLUME 88.2 FL (82.0-92.0); MONOCYTES % (AUTO) 7.9 % (0.0-11.0); NEUTROPHILS # (AUTO) 9.9 K/UL (1.8-8.9); NEUTROPHILS % (AUTO) 77.1 % (38.5-71.5); PLATELET COUNT (AUTO) 201 K/UL (150-450); RED BLOOD CELL COUNT(AUTO) 4.54 MIL/UL (4.7-6.1); WHITE BLOOD COUNT (AUTO) 12.9 K/UL (4.0-11.2)
[2017-08-08 06:44] LABS: CARBON DIOXIDE 23 mmol/L (21-32); CHLORIDE 110 mmol/L (98-107); CREATININE 1.9 mg/dL (0.6-1.3); GLUCOSE 105 mg/dL (74-106); MAGNESIUM 1.8 mg/dL (1.8-2.4); PHOSPHOROUS 3.9 mg/dL (2.5-4.9); POTASSIUM 3.9 mmol/L (3.5-5.1); UREA NITROGEN, BLOOD 41 mg/dL (7-18)
--- NOTE | 2017-08-08 07:55 | NUR ---
RECEIVED AWAKE HOB ELEVATED NO RESP DISTRESS, FALL PRECAUTIONS MAINTAINED
[2017-08-08 08:36] VITALS: BP 145/97
--- NOTE | 2017-08-08 09:00 | NUR ---
DR KELLER VISITING
[2017-08-08 11:26] VITALS: BP 139/79
--- NOTE | 2017-08-08 11:30 | NUR ---
[facility] CARE NURSE VISITING, STERRI STRIPS TO LEFT ELBOW WOUND SKIN TER APPLIED BY SAME
--- NOTE | 2017-08-08 11:32 | NUR ---
WOUND CARE CONSULT: PT PRESENTS WITH STAGE 2 ULCER TO SACRUM, PRESENT ON ADMISSION. LEFT ARM SKIN TEAR REPAIRED WITH STERI STRIPS. PT TOLERATED WELL. PT HAS VERY FRAGILE SKIN WHICH TEARS EASILY. SCARRING NOTED TO BILATERAL HEELS. FEET AND HEELS NOTED TO HAVE DUSKY COLOR. ALL SKIN PROTECTION MEASURES IN PLACE AND DISCUSSED WITH NURSING STAFF. WILL SEE PRN. HAQUE IN AGREEMENT WITH PLAN OF CARE. Addendum: 08/08/17 at 1134 by KIMMY GONZALEZ RN Amended: Links added.
[2017-08-08 15:59] VITALS: BP 133/92
--- NOTE | 2017-08-08 18:30 | NUR ---
DR KELLER CALLED ORDER TO RESTART MESTINON OBTAINED
--- NOTE | 2017-08-08 18:45 | NUR ---
CARDIO VASCULAR RESPIRATORY STATUS STABLE ON Q 1 HOUR ROUNDS, FALL PRECAUTIONS MAINTAINED POSITIONED IN BED Q2 HOURS HEELS FLOATED
--- NOTE | 2017-08-08 19:30 | NUR ---
RECEIVED PATIENT LAYING COMFORTABLY IN BED. HOB ELEVATED. NO ACUTE DISTRESS NOTED. PATIENT IS A&O X4 BUT FORGETFUL. NOTED BRUISING ON BILATERAL ARM. RAJAN CARE PROVIDED. SAFETY INITIATED. CALL LIGHT WITHIN REACH. WILL CONTINUE TO MONITOR.
[2017-08-08 19:57] VITALS: BP 123/82
--- NOTE | 2017-08-09 00:40 | NUR ---
COREG 12.5mg administered to patient at 0040.
[2017-08-09 05:44] VITALS: BP 144/99
--- NOTE | 2017-08-09 06:00 | NUR ---
DID NOT GIVE MESTINON BECAUSE MED IS NOT AVAILABLE.
--- NOTE | 2017-08-09 06:07 | NUR ---
NO CHANGES T/O SHIFT. NO ACUTE DISTRESS NOTED. PATIENT REMAINS A&O X2, FORGETFUL. TURN AND REPOSITIONED Q2H. DVT PUMPS IN PLACED. SKIN: MEPILEX APPLIED TO COCCYX AREA. RAJAN CARE PROVIDED. ALL MEDS GIVEN ORDERED. SAFETY AND COMFORT MEASURES MAINTAINED T/O SHIFT. ALL NEEDS MET.
--- NOTE | 2017-08-09 06:30 | NUR ---
PATIENT IN AND OUT OF SLEEP THROUGHOUT THE NIGHT. PATIENT AO x2. RESPONDS TO COMMANDS. SLIGHTLY CONFUSED. REORIENTATION PROVIDED. STABLE CONDITION. NO SIGNS OF DISTRESS. IV FLUIDS CONTINUE TO RUN AT NS 75 ML/HR. LINEN CHANGE, BED BATH, CARE/COMFORT PROVIDED TO PATIENT. BP ELEVATED @ 0600 VITALS: BP 144/80. REMAINING VITALS WNL. CARDIAC RHYTHM: SINUS RHYTHM ON MONITOR. PATIENT COMPLAINED OF PAIN 7/10 ON PAIN SCALE IN UPPER EXTREMITIES. PAIN MEDICATION PROVIDED TO PATIENT. SAFETY AND COMFORT PROVIDED TO PATIENT.
[2017-08-09 06:41] LABS: BASOPHILS # (AUTO) 0.1 K/uL (0.0-8.0); BASOPHILS % (AUTO) 0.8 % (0.0-2.0); EOSINOPHILS # (AUTO) 0.6 K/uL (0.0-0.7); HEMATOCRIT 38.8 % (40-50); HEMOGLOBIN 12.4 G/DL (14.0-18.0); LYMPHOCYTES # (AUTO) 1.5 K/UL (0.8-4.8); LYMPHOCYTES % (AUTO) 10.8 % (20.5-51.5); MEAN CORPUSCULAR HGB CONC 32 g/dL (32.0-37.0); MEAN CORPUSCULAR VOLUME 87.8 FL (82.0-92.0); MONOCYTES % (AUTO) 7.5 % (0.0-11.0); NEUTROPHILS # (AUTO) 10.6 K/UL (1.8-8.9); NEUTROPHILS % (AUTO) 76.9 % (38.5-71.5); PLATELET COUNT (AUTO) 201 K/UL (150-450); RED BLOOD CELL COUNT(AUTO) 4.42 MIL/UL (4.7-6.1); WHITE BLOOD COUNT (AUTO) 13.8 K/UL (4.0-11.2)
[2017-08-09 06:47] LABS: CARBON DIOXIDE 25 mmol/L (21-32); CHLORIDE 108 mmol/L (98-107); GLUCOSE 102 mg/dL (74-106); MAGNESIUM 1.7 mg/dL (1.8-2.4); PHOSPHOROUS 3.6 mg/dL (2.5-4.9); POTASSIUM 3.3 mmol/L (3.5-5.1); UREA NITROGEN, BLOOD 41 mg/dL (7-18)
--- NOTE | 2017-08-09 07:30 | NUR ---
RECEIVED PATIENT LAYING COMFORTABLY IN BED. NO ACUTE DISTRESS NOTED. PATIENT IS A&O X4 BUT FORGETFUL. NOTED BRUISING ON BILATERAL ARM. SAFETY INITIATED. CALL LIGHT WITHIN REACH. WILL CONTINUE TO MONITOR.
--- NOTE | 2017-08-09 08:10 | NUR ---
PT SEEN BY DR PLAZA
[2017-08-09 11:09] VITALS: BP 116/72
--- NOTE | 2017-08-09 11:25 | NUR ---
D/C FOLLY CATHETER PER MD ORDERS.
[2017-08-09 15:07] VITALS: BP_SYST 113; BP_SYST 138; BP_DIAS 61; BP_DIAS 64
--- NOTE | 2017-08-09 20:00 | NUR ---
RECEIVED REPORT FROM PREVIOUS SHIFT. PATIENT ALERT/ORIENTED. STABLE CONDITION. NO SIGNS OF DISTRESS. BED ALARM ON, BED IN LOW LEVEL. PATIENT DOES NOT EXPERIENCE ANY PAIN. WILL CONTINUE TO MONITOR. SAFETY AND COMFORT PROVIDED TO PATIENT.
[2017-08-09 20:15] VITALS: BP 121/84
--- NOTE | 2017-08-10 05:31 | NUR ---
PATIENT IS SLEPT THROUGHOUT THE NIGHT. STABLE CONDITION. NO SIGNS OF DISTRESS. COMFORT AND SAFETY PROVIDED TO PATIENT.
[2017-08-10 05:35] VITALS: BP 116/67
--- NOTE | 2017-08-10 06:27 | NUR ---
PATIENT SLEPT INTERMITTENTLY T/O SHIFT. NO ACUTE DISTRESS NOTED. TURN AND REPOSITIONED. BMX1. ALL MEDS GIVEN ORDERED. ALL MEDS GIVEN ORDERED. ALL NEEDS MET. VITAL SIGNS STABLE.
--- NOTE | 2017-08-10 07:40 | NUR ---
RECEIVED PATIENT SLEEPING IN BED. NO ACUTE DISTRESS NOTED. PATIENT IS A&O X4 BUT FORGETFUL. NOTED BRUISING ON BILATERAL ARM. SAFETY INITIATED. CALL LIGHT WITHIN REACH. WILL CONTINUE TO MONITOR.
[2017-08-10 08:43] LABS: BASOPHILS # (AUTO) 0.1 K/uL (0.0-8.0); BASOPHILS % (AUTO) 0.7 % (0.0-2.0); EOSINOPHILS # (AUTO) 0.3 K/uL (0.0-0.7); EOSINOPHILS % (AUTO) 3.1 % (0.0-7.0); HEMATOCRIT 39.7 % (40-50); HEMOGLOBIN 12.4 G/DL (14.0-18.0); LYMPHOCYTES # (AUTO) 1.6 K/UL (0.8-4.8); LYMPHOCYTES % (AUTO) 14.3 % (20.5-51.5); MEAN CORPUSCULAR HEMOGLOBIN 27.5 UUG (27.0-31.0); MEAN CORPUSCULAR HGB CONC 31 g/dL (32.0-37.0); MONOCYTES # (AUTO) 0.9 K/UL (0.1-1.30); MONOCYTES % (AUTO) 7.7 % (0.0-11.0); NEUTROPHILS # (AUTO) 8.3 K/UL (1.8-8.9); NEUTROPHILS % (AUTO) 74.2 % (38.5-71.5); PLATELET COUNT (AUTO) 213 K/UL (150-450); RED BLOOD CELL COUNT(AUTO) 4.51 MIL/UL (4.7-6.1); WHITE BLOOD COUNT (AUTO) 11.2 K/UL (4.0-11.2)
--- NOTE | 2017-08-10 09:30 | NUR ---
PT SEEN BY DR RAMIREZ
[2017-08-10 10:15] LABS: CARBON DIOXIDE 25 mmol/L (21-32); CHLORIDE 107 mmol/L (98-107); CREATININE 2.4 mg/dL (0.6-1.3); GLUCOSE 137 mg/dL (74-106); MAGNESIUM 1.9 mg/dL (1.8-2.4); POTASSIUM 4.6 mmol/L (3.5-5.1); UREA NITROGEN, BLOOD 46 mg/dL (7-18)
[2017-08-10 11:57] VITALS: BP 104/68
[2017-08-10] MEDS ORDERED: ASPI-618 PO (13:43)
[2017-08-10] MEDS ORDERED: PYRI60TA PO (13:43)
[2017-08-10] MEDS ORDERED: CEPH-569 PO (13:44)
[2017-08-10 14:48] LABS: MAGNESIUM 1.8 mg/dL (1.8-2.4); PHOSPHOROUS 3.4 mg/dL (2.5-4.9)
--- NOTE | 2017-08-10 15:06 | NUR ---
D/C ORDERS RECEIVED NOTED AND CARRIED OUT.D/C HEPLOCK PER MD ORDERS .PT LEFT THE FACILITY VIA AMBULANCES IN STABLE CONDITION.
== END 2017-08-10 15:00 | DRG 280 ==
LOC: ER 22:42 → MED 08-07 01:07
PROVIDERS: ADMIT Internal Medicine; ATTEND Nurse Practitioner Acute Care
DX: I13.0 Hypertensive heart and chronic kidney disease with heart failure and stage 1 through stage 4 chronic kidney disease, or unspecified chronic kidney disease (principal); I50.43 Acute on chronic combined systolic (congestive) and diastolic (congestive) heart failure; I21.4 Non-ST elevation (NSTEMI) myocardial infarction; G93.41 Metabolic encephalopathy; N18.4 Chronic kidney disease, stage 4 (severe); E11.22 Type 2 diabetes mellitus with diabetic chronic kidney disease; D68.59 Other primary thrombophilia; G70.00 Myasthenia gravis without (acute) exacerbation; F03.90 Unspecified dementia, unspecified severity, without behavioral disturbance, psychotic disturbance, mood disturbance, and anxiety; N39.0 Urinary tract infection, site not specified; E44.1 Mild protein-calorie malnutrition; F33.1 Major depressive disorder, recurrent, moderate; J98.11 Atelectasis; I27.2 Other secondary pulmonary hypertension; Z16.29 Resistance to other single specified antibiotic; Z16.11 Resistance to penicillins; B96.4 Proteus (mirabilis) (morganii) as the cause of diseases classified elsewhere; B96.20 Unspecified Escherichia coli [E. coli] as the cause of diseases classified elsewhere; Z68.21 Body mass index [BMI] 21.0-21.9, adult; E03.9 Hypothyroidism, unspecified; Z85.01 Personal history of malignant neoplasm of esophagus; I48.2 Chronic atrial fibrillation; Z79.82 Long term (current) use of aspirin; Z79.899 Other long term (current) drug therapy; Z87.891 Personal history of nicotine dependence; Z96.652 Presence of left artificial knee joint; Z90.49 Acquired absence of other specified parts of digestive tract; R62.7 Adult failure to thrive; K21.9 Gastro-esophageal reflux disease without esophagitis; N40.0 Benign prostatic hyperplasia without lower urinary tract symptoms; Z91.81 History of falling; I34.0 Nonrheumatic mitral (valve) insufficiency; I49.3 Ventricular premature depolarization; D64.9 Anemia, unspecified
CPT/HCPCS: 36415; 70030-TC; 71010; 83550; 83605; 83735; 84100; 85025; 85730; 87040; 87077; 87086; 93005; 93307; A4663; J0696; J1644; J1940; J3475; J3480; J7030; J7040; J7050; J7060